=== PATIENT | male | born 1975 | race Caucasian/White ===

== ENCOUNTER 2022-03-07 18:01 | Emergency (ER) | payer OTHER ==
[~2022-03-07] VITALS: Ht 182.9 cm; Wt 95.3 kg
[2022-03-07 18:27] LABS: BASOPHILS % (AUTO) 0.5 % (0.0-5.0); EOSINOPHILS % (AUTO) 0.8 % (0.0-8.0); HEMATOCRIT 38.9 % (42-54); LYMPHOCYTES % (AUTO) 17.1 % (21.0-51.0); MEAN CORPUSCULAR HEMOGLOBIN 32.3 pg (27.0-33.0); MEAN CORPUSCULAR HGB CONC 35.5 g/dL (32.0-36.0); MEAN CORPUSCULAR VOLUME 91.1 fL (79-99); MONOCYTES % (AUTO) 8.5 % (3.0-13.0); PLATELET COUNT (AUTO) 191 K/uL (130-400); RED BLOOD CELL COUNT(AUTO) 4.27 MIL/uL (4.50-6.20); RED CELL DISTRIBUTION WIDTH 11.9 % (11.0-15.5); WHITE BLOOD COUNT (AUTO) 8.4 K/uL (4.8-10.8)
[2022-03-07 18:55] LABS: POTASSIUM 3.3 mmol/L (3.5-5.1)
[2022-03-07 18:59] LABS: ALBUMIN 3.9 g/dL (3.5-5.0); TOTAL PROTEIN, SERUM 7.1 g/dL (6.0-8.3)
[2022-03-07] MEDS ORDERED: CLINDAMYCIN IVPB 600MG/50ML 50 ML IV SCH (20:00)
[2022-03-07] MEDS ORDERED: POTASSIUM BICARB/CIT AC 25 MEQ TABLET.EFF PO ONE (20:00)
[2022-03-07] MEDS ORDERED: ACETAMINOPHEN WITH CODEINE 1 TAB TAB PO ONE (20:00)
[2022-03-07] MEDS ORDERED: IOHEXOL-350 50ML VIAL IV ONE (20:33)
[2022-03-07] MEDS ORDERED: ACET-2079 PO (22:41)
[2022-03-07] MEDS ORDERED: CLIN-141 PO (22:41)
[2022-03-07 22:48] VITALS: BP 146/84
== END 2022-03-07 22:58 | disposition home or self-care (01) ==
LOC: EDH 18:01
DX: S02.5XXA Fracture of tooth (traumatic), initial encounter for closed fracture (principal); L03.211 Cellulitis of face; K02.9 Dental caries, unspecified; K05.10 Chronic gingivitis, plaque induced; X58.XXXA Exposure to other specified factors, initial encounter; Y93.89 Activity, other specified; Y92.89 Other specified places as the place of occurrence of the external cause; Y99.8 Other external cause status
CPT/HCPCS: 99285; 96365; 70487; 80053; 85025; 83605; 36415; 76536; J3490; Q9967